=== PATIENT | male | born 1950 | race Caucasian/White ===

== ENCOUNTER 2017-12-30 06:59 | Emergency (ER) | payer OTHER ==
--- NOTE | 2017-12-30 07:31 | EDPHYS ---
Physician Documentation [facility] Name: Chase Polo Age: 67 yrs Sex: Male : 1950 Arrival Date: 12/30/2017 Time: 07:04 Bed 20 Private MD: ED Physician Eder Ferrer HPI: 12/30 07:16 This 67 yrs old Male presents to ER via Ambulatory with complaints of Thigh gs Pain, Leg Pain. 07:16 The patient presents with pain. The complaints affect the left lower back. Context: gs resulted from bending over lifting. Onset: The symptoms/episode began/occurred acutely, yesterday. Modifying factors: the symptoms are aggravated by movement. Associated signs and symptoms: Pertinent negatives numbness, weakness. Severity of symptoms: At their worst the symptoms were moderate, in the emergency department the symptoms are unchanged. Historical: - Allergies: 07:16 No Known Allergies; ss - Home Meds: 07:27 Norvasc 5 mg Oral tab [Active]; aspirin 81 mg Oral chew [Active]; Hyzaar 100-12.5 mg em Oral tab [Active]; - PMHx: 07:16 Hypertension; ss - Immunization history:: Adult Immunizations up to date. - Social history:: Smoking status: Patient/guardian denies using tobacco, but has a distant history of tobacco abuse. - Ebola Screening: : Patient denies exposure to infectious person Patient denies travel to an Ebola-affected area in the 21 days before illness onset. ROS: 07:21 All other systems are negative. gs 07:21 Abdomen/GI: Negative for bowel incontinence. gs 07:21 : Negative for Exam: 07:21 Head/Face: Normocephalic, atraumatic. Eyes: Pupils equal round and reactive to light, gs extra-ocular motions intact. Lids and lashes normal. Conjunctiva and sclera are non-icteric and not injected. Cornea within normal limits. Periorbital areas with no swelling, redness, or edema. ENT: Nares patent. No nasal discharge, no septal abnormalities noted. Tympanic membranes are normal and external auditory canals are clear. Oropharynx with no redness, swelling, or masses, exudates, or evidence of obstruction, uvula midline. Mucous membranes moist. Neck: Trachea midline, no thyromegaly or masses palpated, and no cervical lymphadenopathy. Supple, full range of motion without nuchal rigidity, or vertebral point tenderness. No Meningismus. Chest/axilla: Normal chest wall appearance and motion. Nontender with no deformity. No lesions are appreciated. Cardiovascular: Regular rate and rhythm with a normal S1 and S2. No gallops, murmurs, or rubs. Normal PMI, no JVD. No pulse deficits. Respiratory: Lungs have equal breath sounds bilaterally, clear to auscultation and percussion. No rales, rhonchi or wheezes noted. No increased work of breathing, no retractions or nasal flaring. Abdomen/GI: Soft, non-tender, with normal bowel sounds. No distension or tympany. No guarding or rebound. No evidence of tenderness throughout. Skin: Warm, dry with normal turgor. Normal color with no rashes, no lesions, and no evidence of cellulitis. Neuro: Awake and alert, GCS 15, oriented to person, place, time, and situation. Cranial nerves II-XII grossly intact. Motor strength 5/5 in all extremities. Sensory grossly intact. Cerebellar exam normal. Normal gait. 07:21 MS/ Extremity: Pulses equal, no cyanosis. Neurovascular intact. Full, normal range of motion. 07:21 Constitutional: The patient appears alert, awake. 07:21 Back: pain, that is mild, of the left low back, Straight leg raises: left lower extremity illicits pain, at 30 degrees. Vital Signs: 07:16 BP 169 / 118; Pulse 60; Resp 16; Temp 97.6(O); Pulse Ox 100% on R/A; Weight 83.91 kg; ss Height 5 ft. 7 in. (170.18 cm); Pain 8/10; 07:43 BP 155 / 71; Pulse 53; Resp 18; Pulse Ox 100% on R/A; Pain 6/10; em 07:16 Body Mass Index 28.97 (83.91 kg, 170.18 cm) MDM: 07:16 Patient medically screened. gs 07:21 Differential diagnosis: sciatica, herniated disc. Data reviewed: vital signs, nurses gs notes. Counseling: I had a detailed discussion with the patient and/or guardian regarding: the historical points, exam findings, and any diagnostic results supporting the discharge/admit diagnosis. Response to treatment: the patient's symptoms have mildly improved after treatment. Administered Medications: 07:32 Drug: TORadol 30 mg Route: IM; Site: left deltoid; em 07:43 Follow up: Response: No adverse reaction; Pain is decreased em Disposition: 12/30/17 07:30 Discharged to Home. Impression: Sciatica, left side. - Condition is Stable. - Discharge Instructions: Sciatica. - Prescriptions for Prednisone 20 mg Oral Tablet - take 1 tablet by ORAL route once daily for 5 days; 5 tablet. Tramadol 50 mg Oral Tablet - take 1 tablet by ORAL route every 8 hours as needed; 12 tablet. - Medication Reconciliation Form, Thank You Letter, Antibiotic Education, Prescription Opioid Use form. - Follow up: Private Physician; When: 2 - 3 days; Reason: Re-evaluation by your physician. Signatures: Zaki Wharton LVN LVN em Smirch, Shelby, RN RN ss Eder Ferrer MD MD gs Corrections: (The following items were deleted from the chart) 07:44 07:30 12/30/2017 07:30 Discharged to Home. Impression: Sciatica, left side. Condition em is Stable. Forms are Medication Reconciliation Form, Thank You Letter, Antibiotic Education, Prescription Opioid Use. Follow up: Private Physician; When: 2 - 3 days; Reason: Re-evaluation by your physician. gs
--- NOTE | 2017-12-30 07:31 | ER ---
Nurse's Notes [facility] Name: Chase Polo Age: 67 yrs Sex: Male : 1950 Arrival Date: 12/30/2017 Time: 07:04 Bed 20 Private MD: Diagnosis: Sciatica, left side Presentation: 12/30 07:11 Presenting complaint: Patient states: pain to back of L thigh that began yesterday ss after bending over and leg "giving out". Pt reports a history of sciatica and states that it feels similar, but worse this time. Transition of care: patient was not received from another setting of care. Onset of symptoms was December 27, 2017. Risk Assessment: Do you want to hurt yourself or someone else? Patient reports no desire to harm self or others. Initial Sepsis Screen: Does the patient meet any 2 criteria? No. Patient's initial sepsis screen is negative. Does the patient have a suspected source of infection? No. Patient's initial sepsis screen is negative. Care prior to arrival: None. 07:11 Method Of Arrival: Ambulatory ss 07:11 Acuity: DEVI 4 ss Historical: - Allergies: 07:16 No Known Allergies; ss - Home Meds: 07:27 Norvasc 5 mg Oral tab [Active]; aspirin 81 mg Oral chew [Active]; Hyzaar 100-12.5 mg em Oral tab [Active]; - PMHx: 07:16 Hypertension; ss - Immunization history:: Adult Immunizations up to date. - Social history:: Smoking status: Patient/guardian denies using tobacco, but has a distant history of tobacco abuse. - Ebola Screening: : Patient denies exposure to infectious person Patient denies travel to an Ebola-affected area in the 21 days before illness onset. Screenin:29 Abuse screen: Denies threats or abuse. Denies injuries from another. Nutritional ss screening: No deficits noted. Tuberculosis screening: Never had TB. Fall Risk None identified. Assessment: 07:11 General: Appears in no apparent distress. comfortable, Behavior is calm, cooperative, ss Denies fever, feeling ill, fatigue, chills. Pain: Complains of pain in left hamstring Pain radiates to left calf Pain currently is 8 out of 10 on a pain scale. Pain began yesterday Is continuous. Neuro: Level of Consciousness is awake, alert, obeys commands, Oriented to person, place, time, situation. Cardiovascular: Capillary refill < 3 seconds is brisk in bilateral fingers. Respiratory: Respiratory effort is even, unlabored, Respiratory pattern is regular, symmetrical. GI: No signs and/or symptoms were reported involving the gastrointestinal system. : No signs and/or symptoms were reported regarding the genitourinary system. EENT: No signs and/or symptoms were reported regarding the EENT system. Derm: Skin is intact, is healthy with good turgor, Skin is pink, warm \\T\\ dry. normal. Musculoskeletal: Circulation, motion, and sensation intact. Range of motion: intact in all extremities, Swelling absent. Vital Signs: 07:16 BP 169 / 118; Pulse 60; Resp 16; Temp 97.6(O); Pulse Ox 100% on R/A; Weight 83.91 kg; ss Height 5 ft. 7 in. (170.18 cm); Pain 8/10; 07:43 BP 155 / 71; Pulse 53; Resp 18; Pulse Ox 100% on R/A; Pain 6/10; em 07:16 Body Mass Index 28.97 (83.91 kg, 170.18 cm) ED Course: 07:04 Patient arrived in ED. 07:07 Eder Ferrer MD is Attending Physician. 07:11 Zaki Wharton LVN is Primary Nurse. em 07:14 Triage completed. ss 07:16 Arm band placed on right wrist. ss 07:29 Patient has correct armband on for positive identification. Bed in low position. Call ss light in reach. 07:35 No provider procedures requiring assistance completed. Patient did not have IV access em during this emergency room visit. Administered Medications: 07:32 Drug: TORadol 30 mg Route: IM; Site: left deltoid; em 07:43 Follow up: Response: No adverse reaction; Pain is decreased em Outcome: 07:30 Discharge ordered by MD. gs 07:42 Discharged to home ambulatory. em 07:42 Condition: good 07:42 Discharge instructions given to patient, Instructed on discharge instructions, follow up and referral plans. medication usage, Demonstrated understanding of instructions, follow-up care, medications, Prescriptions given X 2. 07:44 Patient left the ED. em Signatures: Tatum Johnson Zaki Wharton LVN LVN em Renita Naik RN RN ss Eder Ferrer MD MD gs
[2017-12-30] MEDS ORDERED: KETOROLAC 30 MG/ML INJ ONE (07:33)
== END 2017-12-30 07:44 | disposition home or self-care (01) ==
LOC: ER 06:59
DX: M54.32 Sciatica, left side (principal); I10 Essential (primary) hypertension; Z79.82 Long term (current) use of aspirin; Z79.899 Other long term (current) drug therapy
CPT/HCPCS: 96372; 99283

== ENCOUNTER 2018-01-02 14:40 | Emergency (ER) | payer OTHER ==
--- NOTE | 2018-01-02 16:06 | EDPHYS ---
Physician Documentation [facility] Name: Chase Polo Age: 67 yrs Sex: Male : 1950 Arrival Date: 01/02/2018 Time: 14:48 Bed 6 Private MD: Nura Layne E ED Physician Mesfin Baird HPI: 01/02 16:09 This 67 yrs old Male presents to ER via Ambulatory with complaints of Leg jmm Pain. 16:09 The patient presents with pain. The complaints affect the left leg. Onset: The jmm symptoms/episode began/occurred acutely, 3 day(s) ago. 16:10 Modifying factors: The symptoms are alleviated by the symptoms are aggravated by jmm movement. Associated signs and symptoms: Pertinent negatives fever, weakness. This is a 67 year old male with a history of htn that presents to the ED with left leg anderson which began after bending over and sneezing 3 days ago. Patient states symptoms have been relieved with prescribed tramadol. Patient denies fecal incontinence, denies urinary retention, denies numbness, denies weakness. . Historical: - Allergies: 15:06 No Known Allergies; aj1 - Home Meds: 15:06 aspirin 81 mg Oral chew [Active]; Hyzaar 100-12.5 mg Oral tab [Active]; Norvasc 5 mg aj1 Oral tab [Active]; Claritin Oral [Active]; - PMHx: 15:06 Hypertension; aj1 - Immunization history:: Flu vaccine is up to date. - Social history:: Smoking status: Patient/guardian denies using tobacco. - Ebola Screening: : Patient denies travel to an Ebola-affected area in the 21 days before illness onset. ROS: 16:10 Constitutional: Negative for fever, chills, and weight loss, Eyes: Negative for injury, jmm pain, redness, and discharge, Cardiovascular: Negative for chest pain, palpitations, and edema, Respiratory: Negative for shortness of breath, cough, wheezing, and pleuritic chest pain. 16:10 Back: Positive for pain at rest, pain with movement. 16:10 MS/extremity: Positive for pain. 16:10 All other systems are negative. Exam: 16:10 Head/Face: atraumatic. Chest/axilla: Normal chest wall appearance and motion. jmm Cardiovascular: Regular rate and rhythm. No edema appreciated Respiratory: Normal respirations, no respiratory distress appreciated 16:10 Eyes: EOMI, no conjunctival erythema appreciated ENT: Moist Mucus Membranes Neck: Trachea midline, Supple Skin: General appearance color normal 16:10 Constitutional: The patient appears in no acute distress, alert, awake. 16:10 Back: ROM is painful, with all movement. 16:10 Musculoskeletal/extremity: ROM: intact in all extremities. 16:10 Neuro: extensor hallucis longus intact bilaterally. 16:10 Psych: Behavior/mood is pleasant, cooperative. Vital Signs: 15:06 BP 130 / 83; Pulse 62; Resp 18; Temp 97.2; Pulse Ox 100% on R/A; Weight 83.91 kg (R); aj1 Height 5 ft. 7 in. (170.18 cm) (R); Pain 2/10; 15:06 Body Mass Index 28.97 (83.91 kg, 170.18 cm) aj1 MDM: 15:37 Patient medically screened. [facility] 16:05 Data reviewed: vital signs, nurses notes. Counseling: I had a detailed discussion with martín the patient and/or guardian regarding: the historical points, exam findings, and any diagnostic results supporting the discharge/admit diagnosis, the need for outpatient follow up, to return to the emergency department if symptoms worsen or persist or if there are any questions or concerns that arise at home. 16:05 Data interpreted: Pulse oximetry: on room air is 100 %. Interpretation: normal. [facility] Administered Medications: No medications were administered Disposition: 01/02/18 16:05 Discharged to Home. Impression: Sciatica, left side. - Condition is Stable. - Discharge Instructions: Sciatica, Back Exercises. - Prescriptions for Ultram 50 mg Oral Tablet - take 1 tablet by ORAL route every 6 hours As needed; 6 tablet. orphenadrine citrate 100 mg Oral Tablet Sustained Release - take 1 tablet by ORAL route 2 times per day As needed; 20 tablet. - Medication Reconciliation Form, Thank You Letter, Antibiotic Education, Prescription Opioid Use form. - Follow up: Private Physician; When: 2 - 3 days; Reason: Recheck today's complaints, Continuance of care, Re-evaluation by your physician. Addendum: 01/07/2018 06:23 Co-signature as Attending Physician, Mesfin Baird MD I agree with the assessment and c mendes plan of care. Signatures: Geraldine Hough RN RN aj1 Mesfin Baird MD MD cha Mickail, Joel, PA PA Radha Combs, RN RN hb Corrections: (The following items were deleted from the chart) 01/02 16:12 16:09 Onset: The symptoms/episode began/occurred acutely, martín resendiz 16:30 16:05 01/02/2018 16:05 Discharged to Home. Impression: Sciatica, left side. Condition hb is Stable. Forms are Medication Reconciliation Form, Thank You Letter, Antibiotic Education, Prescription Opioid Use. Follow up: Private Physician; When: 2 - 3 days; Reason: Recheck today's complaints, Continuance of care, Re-evaluation by your physician. martín
--- NOTE | 2018-01-02 16:06 | ER ---
Nurse's Notes [facility] Name: Chase Polo Age: 67 yrs Sex: Male : 1950 Arrival Date: 01/02/2018 Time: 14:48 Bed 6 Private MD: Nura Layne E Diagnosis: Sciatica, left side Presentation: 01/02 15:03 Presenting complaint: Patient states: "I was in Sunday and saw Dr. Araiza, I'm having a aj1 bit of sciatica, he suggested that I see my family doctor, but he couldn't see me this week or next week. I went to urgent care and they said that they can't do anything for me and to come over here" States that he got a Rx for prednisolone and tramadol, states that it is helping but he is running out of the tramadol. Transition of care: patient was not received from another setting of care. Onset of symptoms was December 2017. Risk Assessment: Do you want to hurt yourself or someone else? Patient reports no desire to harm self or others. Initial Sepsis Screen: Does the patient meet any 2 criteria? No. Patient's initial sepsis screen is negative. Does the patient have a suspected source of infection? No. Patient's initial sepsis screen is negative. Care prior to arrival: None. 15:03 Method Of Arrival: Ambulatory aj1 15:03 Acuity: DEVI 4 aj1 Triage Assessment: 15:06 General: Appears in no apparent distress. uncomfortable, Behavior is calm, cooperative, aj1 appropriate for age. Pain: Complains of pain in left gluteus ingrid and left leg. Pain: Pain currently is 2 out of 10 on a pain scale. at worst was 8 out of 10 on a pain scale. Neuro: Level of Consciousness is awake, alert, obeys commands. Cardiovascular: Patient's skin is warm and dry. Respiratory: Airway is patent Respiratory effort is even, unlabored, Respiratory pattern is regular, symmetrical. Historical: - Allergies: 15:06 No Known Allergies; aj1 - Home Meds: 15:06 aspirin 81 mg Oral chew [Active]; Hyzaar 100-12.5 mg Oral tab [Active]; Norvasc 5 mg aj1 Oral tab [Active]; Claritin Oral [Active]; - PMHx: 15:06 Hypertension; aj1 - Immunization history:: Flu vaccine is up to date. - Social history:: Smoking status: Patient/guardian denies using tobacco. - Ebola Screening: : Patient denies travel to an Ebola-affected area in the 21 days before illness onset. Screenin:36 Abuse screen: Denies threats or abuse. Denies injuries from another. Nutritional hb screening: No deficits noted. Tuberculosis screening: No symptoms or risk factors identified. Fall Risk None identified. Assessment: 15:36 General: Appears in no apparent distress. Behavior is calm, cooperative. Pain: Pain hb currently is 2 out of 10 on a pain scale. at worst was 8 out of 10 on a pain scale. Neuro: Level of Consciousness is awake, alert, obeys commands, Oriented to person, place, time, situation. Cardiovascular: Heart tones S1 S2 present Capillary refill < 3 seconds Patient's skin is warm and dry. Respiratory: Airway is patent Trachea midline Respiratory effort is even, unlabored, Respiratory pattern is regular, symmetrical, Breath sounds are clear bilaterally. GI: No signs and/or symptoms were reported involving the gastrointestinal system. : No signs and/or symptoms were reported regarding the genitourinary system. EENT: No signs and/or symptoms were reported regarding the EENT system. Derm: Skin is intact, is healthy with good turgor, Skin is pink, warm \\T\\ dry. Musculoskeletal: Reports pain in left leg and buttocks and left gluteus ingrid. Vital Signs: 15:06 BP 130 / 83; Pulse 62; Resp 18; Temp 97.2; Pulse Ox 100% on R/A; Weight 83.91 kg (R); aj1 Height 5 ft. 7 in. (170.18 cm) (R); Pain 2/10; 15:06 Body Mass Index 28.97 (83.91 kg, 170.18 cm) aj1 ED Course: 14:48 Patient arrived in ED. mr 14:48 Nura Layne MD is Private Physician. mr 15:06 Triage completed. aj1 15:06 Arm band placed on Patient placed in waiting room, Patient notified of wait time. [facility] 15:28 Joey Reyes PA is PHCP. [facility] 15:28 Mesfin Baird MD is Attending Physician. [facility] 15:36 Patient has correct armband on for positive identification. Bed in low position. Call hb light in reach. Side rails up X 1. 16:26 Radha Toledo, RN is Primary Nurse. hb 16:30 No provider procedures requiring assistance completed. Patient did not have IV access hb during this emergency room visit. Administered Medications: No medications were administered Outcome: 16:05 Discharge ordered by . martín 16:30 Discharged to home ambulatory. hb 16:30 Condition: stable 16:30 Discharge instructions given to patient, Instructed on discharge instructions, follow up and referral plans. medication usage, Demonstrated understanding of instructions, follow-up care, medications, Prescriptions given X 2. 16:30 Patient left the ED. hb Signatures: Geraldine Hough, RN RN aj1 Joey Reyes PA PA jmm Rivera, Mary mr Radha Toledo, RN RN hb
== END 2018-01-02 16:30 | disposition home or self-care (01) ==
LOC: ER 14:40
DX: M54.32 Sciatica, left side (principal); I10 Essential (primary) hypertension; Z79.82 Long term (current) use of aspirin
CPT/HCPCS: 99282